=== PATIENT | male | born 1995 | race Caucasian/White ===

== ENCOUNTER 2019-07-24 11:06 | Emergency (ER) | payer OTHER ==
[2019-07-24 11:14] VITALS: BP 179/121
--- NOTE | 2019-07-24 11:35 | XRAY Report ---
Reason: trauma/hand pain Procedure Date: 07/24/2019 Accession Number: [id number] / [id number] Procedure: XR - Hand 3 View LT CPT Code: Final Report FULL RESULT: EXAM: LEFT HAND RADIOGRAPHY EXAM DATE: 07/24/2019 11:28 AM. CLINICAL HISTORY: Trauma/hand pain. COMPARISON: None. TECHNIQUE: 3 views. FINDINGS: Bones: There is a nondisplaced fracture of the base of the first metacarpal bone extending into the first CMC joint. (Booth fracture). Also noted is a minimally displaced distal fifth metacarpal fracture with about 45 degrees overangulation of the distal part, not involving the articular surface of the fifth distal metacarpal (boxer's fracture). Joints: Normal. No subluxations. Soft Tissues: Significant dorsal soft tissue swelling over the MCP joints. IMPRESSION: 1. Nondisplaced fracture at the base of the first metacarpal extending to the first CMC joint (Booth fracture). Age uncertain, this may be from previous trauma. 2. Minimally displaced distal fifth metacarpal fracture with about 45 degrees angulation of the distal part (boxer's fracture). This appears acute. Adjacent soft tissue swelling over the dorsal aspect of the hand. RADIA
--- NOTE | 2019-07-24 11:59 | ED Physician Documentation ---
PD HPI UPPER EXT INJURY - Stated complaint Stated Complaint: LT HAND INJURY - Chief complaint Chief Complaint: Trauma Ext - History obtained from History obtained from: Patient - History of Present Illness Location: Left, Hand Type of injury: Blunt / blow Where injury occurred: Other (GYM) Timing - onset: How many days ago (3) Timing - duration: Days (3) Timing - details: Abrupt onset, Still present Improved by: Rest, Immobilization Worsened by: Moving, Palpating Associated symptoms: Swelling. No: Weakness, Numbness Contributing factors: No: Anticoagulated Similar symptoms before: Has not had sx before Recently seen: Not recently seen - Additonal information Additional information: 23 y/o [employer] male was boxing with gloves and no wraps and he sustained an injury to his left hand. He is left hand dominant and has the majority of swelling over the distal 5th MC consistent with a boxers fracture. Review of Systems Constitutional: denies: Fever Eyes: denies: Decreased vision Ears: denies: Ear pain Nose: denies: Rhinorrhea / runny nose, Congestion Throat: denies: Sore throat Respiratory: denies: Dyspnea, Cough GI: denies: Vomiting Musculoskeletal: reports: Extremity pain, Joint pain, Joint swelling Neurologic: denies: Generalized weakness, Focal weakness, Numbness PD PAST MEDICAL HISTORY - Allergies Allergies/Adverse Reactions: Allergies Allergy/AdvReac Type Severity Reaction Status Date / Time amoxicillin Allergy Hives Verified 07/24/19 11:14 PD ED PE NORMAL - Vitals Vital signs reviewed: Yes (hypertensive) - General General: Alert and oriented X 3, No acute distress, Well developed/nourished - HEENT HEENT: Atraumatic - Respiratory Respiratory: No respiratory distress - Derm Derm: Normal color, Warm and dry, No rash - Extremities Extremities: Other (There is fracture deformity to the distal 5th MC consistent with a boxers fracture. There is specific tenderness to the distal 5th MC with swelling. distal n/v is intact. There is no tenderness over the 1st metacarpal. ) - Neuro Neuro: Alert and oriented X 3, financial wellness coach 2-12 intact, No motor deficit, No sensory deficit, Normal speech Eye Opening: Spontaneous Motor: Obeys Commands Verbal: Oriented GCS Score: 15 - Psych Psych: Normal mood, Normal affect Results - Vitals Vitals: Vital Signs - 24 hr 07/24/19 11:12 Temperature 36.8 C Heart Rate 72 Respiratory 16 Rate Blood Pressure 179/121 H O2 Saturation 99 Oxygen O2 Source Room air - Rads (name of study) hand Radiology: Prelim report reviewed (Impression: 1. Nondisplaced fracture of the base of the first metacarpal extending of the first CMC joint (Booth fracture). Age uncertain, this may be from previous trauma. Minimally displaced distal fifth metacarpal fracture is about 45 degrees angulation of the distal part (boxer's fracture). This appears acute. Adjacent soft tissue swelling over the dorsal aspect of the hand.) Procedures - Splint (location) left hand Splint applied by: Tech Type of splint: Ulnar gutter Other: Patient tolerated well, No complications, Neurovascular intact, Good alignment PD MEDICAL DECISION MAKING - ED course Complexity details: reviewed results, re-evaluated patient, considered differential, d/w patient ED course: 23 y/o male is placed into an ulnar gutter splint and will need casting next week. Departure - Departure Disposition: 01 Home, Self Care Clinical Impression: Boxer's fracture Qualifiers: Encounter type: initial encounter Fracture type: closed Qualified Code(s): S62.339A - Displaced fracture of neck of unspecified metacarpal bone, initial encounter for closed fracture Instructions: ED Hiren Damon Follow-Up: Nura Junior MD [Primary Care Provider] - Discharge Date/Time: 07/24/19 12:19
== END 2019-07-24 12:19 | disposition home or self-care (01) ==
LOC: ED 11:06
DX: S62.235A Other nondisplaced fracture of base of first metacarpal bone, left hand, initial encounter for closed fracture (principal); S62.307A Unspecified fracture of fifth metacarpal bone, left hand, initial encounter for closed fracture; W22.01XA Walked into wall, initial encounter; Y93.71 Activity, boxing; Y92.39 Other specified sports and athletic area as the place of occurrence of the external cause; Y99.8 Other external cause status
CPT/HCPCS: 29125; 99283; 99284